=== PATIENT | male | born 1970 ===

== ENCOUNTER 2020-10-18 08:30 | Inpatient (IN) | payer OTHER ==
[~2020-10-18] VITALS: Ht 182.9 cm; Wt 78.0 kg
[2020-10-18] MEDS ORDERED: AMLODIPINE BESY10 MG PO (10:22)
[2020-10-18] MEDS ORDERED: HUMIRA20 MG/0.4 (10:23)
[2020-10-18] MEDS ORDERED: ALLER-TEC10 MG PO (10:23)
== END 2020-10-25 09:45 | disposition home or self-care (01) | DRG 572 ==
LOC: O/R 10-25 06:00 → SURH 10-25 08:30 → O/R 10-25 09:45 → SURH 10-25 11:15
PROVIDERS: ADMIT Surgery; ATTEND Surgery
PROC: 0JB40ZZ Excision of Right Neck Subcutaneous Tissue and Fascia, Open Approach (ICD-10-PCS; principal; 2020-10-25 11:15)
DX: D17.0 Benign lipomatous neoplasm of skin and subcutaneous tissue of head, face and neck (principal)